=== PATIENT | female | born 1975 | race Caucasian/White ===

== ENCOUNTER 2017-03-29 12:57 | Emergency (ER) | payer MEDICARE, MEDICAID ==
--- NOTE | 2017-03-29 14:30 | UC ---
Eye Complaint HPI - HPI Summary HPI Summary: patient tripped up the stairs and hit her left eye on a hard object 3 days ago. she had immediated swelling of the forhead and a small cut above the left eye. the cut is healing nicely and the swelling has decreased. she continues to have pressure behind and around the eye and there is ecchymosis surrounding the eye socket. Patient states the eye is constantly tearing. she feels pressure around the baptism as well. - History of Current Complaint Chief Complaint: UCHeadInjury Stated Complaint: SPLIT EYE,BLACK EYE PAIN-FALL Time Seen by Provider: 03/29/17 14:05 Hx Obtained From: Patient Hx Last Menstrual Period: 3 WKS AGO ?: No Onset/Duration: Sudden Onset, Lasting Days Timing: Constant Severity Initially: Moderate Severity Currently: Moderate Location of Injury: Conjunctiva, Globe, Eye Lid (lower), Eye Lid (upper) Character: Sharp, Throbbing Aggravating Factor(s): Other - movement of head Alleviating Factor(s): Nothing Associated Signs And Symptoms: Positive: Drainage (Clear), Swelling - Allergies/Home Medications Allergies/Adverse Reactions: Allergies Allergy/AdvReac Type Severity Reaction Status Date / Time metherzine Allergy Severe Airway Uncoded 03/29/17 13:37 Obstruction Home Medications: Home Medications Amlodipine Besylate [Norvasc 5 mg tab] 5 mg PO DAILY 03/29/17 [History Confirmed 03/29/17] Levothyroxine Sodium 175 mcg PO DAILY 03/29/17 [History Confirmed 03/29/17] Norethindrone (Contraceptive) [Norethindrone] 0.35 mg PO DAILY 03/29/17 [ History Confirmed 03/29/17] busPIRone TAB* [Buspar TAB*] 5 mg PO BID 03/29/17 [History Confirmed 03/29/17] PMH/Surg Hx/FS Hx/Imm Hx Previously Healthy: Yes Endocrine History Of: Reports: Thyroid Disease - hypothyroidism Denies: Diabetes Cardiovascular History Of: Reports: Hypertension Denies: Pacemaker/ICD Respiratory History Of: Denies: Asthma GI/ History Of: Reports: Kidney Stones Denies: Renal Disease - Surgical History Surgical History: Yes Surgery Procedure, Year, and Place: LUMPECTOMY RT BREAST(BENIGN)2004. Bone marrow biopsy - Family History Known Family History: Positive: Hypertension, Diabetes - Social History Alcohol Use: Occasionally Substance Use Type: None Smoking Status (MU): Never Smoked Tobacco Review of Systems Constitutional: Negative Skin: Bruising Eyes: Drainage, Other - pressure ENT: Negative Respiratory: Negative Cardiovascular: Negative Gastrointestinal: Negative Genitourinary: Negative Motor: Negative Neurovascular: Negative Musculoskeletal: Negative Neurological: Headache Psychological: Negative All Other Systems Reviewed And Are Negative: Yes Physical Exam Triage Information Reviewed: Yes Appearance: Well-Nourished, Ill-Appearing, Pain Distress Vital Signs: Initial Vital Signs Temp 98 F 03/29/17 13:29 Pulse 106 03/29/17 13:29 Resp 16 03/29/17 13:29 BP 124/82 03/29/17 13:29 Pulse Ox 100 03/29/17 13:29 Vital Signs Reviewed: Yes Eye Exam: Normal Eyes: Positive: Conjunctiva Clear, Conjunctiva Inflamed, Other: - PERRLA, EOMI painful in upward gaze, ecchymosis around sayra orbit, healing 1 cm laceration in upper medial corner of eye. ENT: Positive: Hearing grossly normal, Pharynx normal, TMs normal Dental Exam: Normal Neck exam: Normal Neck: Positive: Supple, Nontender, No Lymphadenopathy Respiratory Exam: Normal Respiratory: Positive: Chest non-tender, Lungs clear, Normal breath sounds Cardiovascular Exam: Normal Cardiovascular: Positive: RRR, No Murmur, Tachycardia Abdominal Exam: Normal Abdomen Description: Positive: Nontender, No Organomegaly, Soft Bowel Sounds: Positive: Present Musculoskeletal Exam: Normal Musculoskeletal: Positive: Strength Intact, ROM Intact, No Edema Neurological Exam: Normal Neurological: Positive: Alert, Muscle Tone Normal Psychological Exam: Normal Skin Exam: Normal Eye Complaint Course/Dx - Course Course Of Treatment: hx obtained, exam performed, meds reviewed, ct obtained. - Differential Dx/Diagnosis Differential Diagnosis/HQI/PQRI: Conjunctivitis, Other - globe fracture Provider Diagnoses: sinusitis. facial contusion Discharge - Discharge Plan Condition: Stable Disposition: HOME Prescriptions: Amoxicillin/Clavulanate TAB* [Augmentin TAB 875*] 875 mg PO BID #20 tab Patient Education Materials: Facial Contusion (ED) Forms: *Work Release Referrals: Ila Dietz MD [Primary Care Provider] - Additional Instructions: 1, get plenty of rest. 2. Use ibuprofen 400-600 mg every 4-6 hours. or Aleve 1-2 tabs every 12 hours. 3. It will take a few weeks to completely resolve.
--- NOTE | 2017-03-29 15:23 | RAD ---
INDICATION: Left orbital trauma. COMPARISON: There are no prior studies available for comparison. TECHNIQUE: Contiguous axial sections of the axial images of the facial bones were obtained and reconstructed in the coronal and sagittal planes. FINDINGS: Mild soft tissue swelling is noted anterior to the left maxilla, orbit and frontal bone. No orbital emphysema is present. The globes are in normal position. The extraocular muscles appear within normal limits. The fonseca of the orbits and maxillary sinuses appear intact. The zygomatic arches appear intact. There is no evidence for a fracture of the mandible. The nasal bones appear intact. There is moderate deviation of the nasal septum toward the right side. The pterygoid plates appear intact. There is mild mucosal thickening within the maxillary sinuses and moderate mucosal thickening within the frontal, ethmoid and sphenoid sinuses. There is a small air-fluid level within the sphenoid sinus. The mastoid air cells appear clear. IMPRESSION: 1. SOFT TISSUE SWELLING, NO EVIDENCE FOR FRACTURE. 2. SINUSITIS.
[2017-03-29 15:51] VITALS: BP 144/88
== END 2017-03-29 15:56 | disposition home or self-care (01) ==
LOC: UCCORT 12:57
DX: J32.9 Chronic sinusitis, unspecified (principal); S00.83XA Contusion of other part of head, initial encounter; W22.8XXA Striking against or struck by other objects, initial encounter; Y93.89 Activity, other specified; Y92.9 Unspecified place or not applicable; E03.9 Hypothyroidism, unspecified; I10 Essential (primary) hypertension; Z87.442 Personal history of urinary calculi
CPT/HCPCS: 70486; 99212; G0463

== ENCOUNTER 2019-03-10 10:15 | Emergency (ER) | payer MEDICARE, MEDICAID ==
[2019-03-10 11:01] VITALS: BP 123/85
--- NOTE | 2019-03-10 11:24 | UC ---
Respiratory Complaint HPI - HPI Summary HPI Summary: Pt c/o productive cough x 2 weeks. Pt also c/o tick bite to back. Tick was removed at home. Unsure length of time tick attached. - History of Current Complaint Chief Complaint: UCGeneralIllness Stated Complaint: COUGH, TICK BITE (HX LUPUS) Time Seen by Provider: 03/10/19 10:57 Hx Obtained From: Patient Hx Last Menstrual Period: "two weeks ago" ?: No Onset/Duration: Sudden Onset, Lasting Weeks, Still Present Timing: Constant Severity Initially: Mild Severity Currently: Mild Pain Intensity: 4 Character: Cough: Productive Aggravating Factors: Exertion, Deep Breaths, Recumbent Position Alleviating Factors: Nothing Associated Signs And Symptoms: Positive: Chills, Wheezing, URI, Nasal Congestion - Risk Factors Pulmonary Embolism Risk Factors: Negative Cardiac Risk Factors: Negative Pseudomonas Risk Factors: Negative Tuberculosis Risk Factors: Negative - Allergies/Home Medications Allergies/Adverse Reactions: Allergies Allergy/AdvReac Type Severity Reaction Status Date / Time methylergonovine Allergy Airway Verified 03/10/19 10:55 [From Methergine] Obstruction lidocaine AdvReac "It Verified 03/10/19 10:55 doesn't work. ... intolerance." Home Medications: Home Medications ALPRAZolam TAB* [Xanax TAB*] 0.25 mg PO DAILY PRN 03/10/19 [History Confirmed ] Desog-E.estradiol/E.estradiol [Azurette 28 Day Tablet] 1 tab PO DAILY 03/10/19 [ History Confirmed 03/10/19] Hydroxychloroquine TAB* [Plaquenil TAB*] 200 mg PO DAILY 03/10/19 [History Confirmed 03/10/19] Levothyroxine TAB* [Synthroid 100 MCG TAB*] 200 mcg PO DAILY 03/10/19 [History Confirmed 03/10/19] Metoprolol Tartrate TAB* [Lopressor TAB*] 25 mg PO BID 03/10/19 [History Confirmed 03/10/19] Venlafaxine EXT RELEASE CAP(NF [Effexor Xr CAP 225 MG (NF)] 225 mg PO DAILY [History Confirmed 03/10/19] amLODIPine TAB* [Norvasc 5 mg TAB*] 5 mg PO DAILY 03/10/19 [History Confirmed ] clonazePAM TAB(*) [Klonopin TAB(*)] 0.5 mg PO BID PRN 03/10/19 [History Confirmed 03/10/19] PMH/Surg Hx/FS Hx/Imm Hx Previously Healthy: Yes - lupus - Surgical History Surgical History: Yes Surgery Procedure, Year, and Place: LUMPECTOMY RT BREAST(BENIGN)2004. Bone marrow biopsy - Family History Known Family History: Positive: Hypertension, Diabetes - Social History Occupation: Employed Full-time Lives: With Family Alcohol Use: 2 beers every other day Substance Use Type: None Smoking Status (MU): Never Smoked Tobacco Have You Smoked in the Last Year: No Review of Systems All Other Systems Reviewed And Are Negative: Yes Constitutional: Positive: Chills, Fatigue Skin: Positive: Other - small erythematous circular area with darkened center right lateral mid back Eyes: Positive: Negative ENT: Positive: Sinus Congestion Respiratory: Positive: Cough Cardiovascular: Positive: Negative Gastrointestinal: Positive: Negative Genitourinary: Positive: Negative Motor: Positive: Negative Neurovascular: Positive: Negative Musculoskeletal: Positive: Negative Neurological: Positive: Negative Psychological: Positive: Negative Is Patient Immunocompromised?: No Physical Exam Triage Information Reviewed: Yes Appearance: Well-Appearing Vital Signs: Initial Vital Signs Temp 98.7 F 03/10/19 10:50 Pulse 80 03/10/19 10:50 Resp 16 03/10/19 10:50 BP 123/85 03/10/19 10:50 Pulse Ox 100 03/10/19 10:50 Vital Signs Reviewed: Yes Eye Exam: Normal ENT: Positive: Nasal congestion Dental Exam: Normal Neck exam: Normal Respiratory Exam: Normal Cardiovascular Exam: Normal Musculoskeletal Exam: Normal Neurological Exam: Normal Psychological Exam: Normal Skin Exam: Other - erythematous [place] right mid lateral back. with darkened center. Respiratory Course/Dx - Differential Dx/Diagnosis Differential Diagnosis/HQI/PQRI: Bronchitis, Other - tick bite Provider Diagnosis: Bronchitis, Tick bite of back Discharge - Sign-Out/Discharge Documenting (check all that apply): Patient Departure All imaging exams completed and their final reports reviewed: No Studies - Discharge Plan Condition: Stable Disposition: HOME Prescriptions: Albuterol HFA INHALER* [Ventolin HFA Inhaler*] 1 - 2 puff INH Q6H PRN #1 mdi PRN Reason: Sob/Wheezing DOXYcycline CAP(*) [DOXYcycline 100MG CAP(*)] 100 mg PO Q12H #20 cap predniSONE TAB* [Deltasone 20 MG TAB*] 20 mg PO DAILY #4 tab Patient Education Materials: Insect Bite or Sting (ED), Acute Bronchitis (ED) Referrals: Ila Dietz MD [Primary Care Provider] - If Needed - Billing Disposition and Condition Condition: STABLE Disposition: Home
== END 2019-03-10 11:33 | disposition home or self-care (01) ==
LOC: UCCORT 10:15
DX: J40 Bronchitis, not specified as acute or chronic (principal); S30.860A Insect bite (nonvenomous) of lower back and pelvis, initial encounter; M32.9 Systemic lupus erythematosus, unspecified; Z88.8 Allergy status to other drugs, medicaments and biological substances; Z88.7 Allergy status to serum and vaccine; W57.XXXA Bitten or stung by nonvenomous insect and other nonvenomous arthropods, initial encounter; Y92.009 Unspecified place in unspecified non-institutional (private) residence as the place of occurrence of the external cause
CPT/HCPCS: 99212; G0463